=== PATIENT | male | born 2000 | race African-American/Black ===

== ENCOUNTER 2023-03-26 18:20 | Emergency (ER) | payer OTHER ==
[~2023-03-26] VITALS: Ht 162.6 cm; Wt 56.8 kg
[~2023-03-26 18:20] MED LIST: AMOXICILLIN 50500 MG PO
[2023-03-26 18:34] VITALS: TEMP 98.8
[2023-03-26 21:09] VITALS: BP 140/74; PULSE 73
== END 2023-03-26 21:09 | disposition home or self-care (01) ==
LOC: COL.ER 18:20
DX: S09.90XA Unspecified injury of head, initial encounter (principal); W19.XXXA Unspecified fall, initial encounter; W22.8XXA Striking against or struck by other objects, initial encounter

== ENCOUNTER 2023-05-29 15:23 | Emergency (ER) | payer OTHER ==
[~2023-05-29] VITALS: Ht 162.6 cm; Wt 56.8 kg
[2023-05-29 15:32] VITALS: TEMP 98.2
[2023-05-29 16:18] VITALS: BP 121/55; PULSE 53
[2023-06-01] MEDS ORDERED: AMOXICILLIN 50500 MG PO (06:31)
== END 2023-05-29 16:20 | disposition home or self-care (01) ==
LOC: COL.ER 15:23
DX: R11.0 Nausea (principal)

== ENCOUNTER 2024-01-01 14:08 | Emergency (ER) | payer OTHER, BC ==
[~2024-01-01] VITALS: Ht 167.6 cm; Wt 54.5 kg
[~2024-01-01 14:08] MED LIST changes: +ZITHROMAX Z PA250 MG PO
[2024-01-01 14:56] VITALS: TEMP 99
[2024-01-01] MEDS ORDERED: Acetaminophen 325 MG TAB PO ONE (18:15)
[2024-01-01] MEDS ORDERED: Ibuprofen 400 MG TAB PO ONE (18:15)
[2024-01-01 18:50] VITALS: BP 143/85; PULSE 65
== END 2024-01-01 18:50 | disposition home or self-care (01) ==
LOC: COL.ER 14:08
DX: M25.562 Pain in left knee (principal); M25.561 Pain in right knee; W18.30XA Fall on same level, unspecified, initial encounter; Y99.0 Civilian activity done for income or pay